=== PATIENT | female | born 1930 | race Caucasian/White ===

== ENCOUNTER 2016-11-12 07:48 | Inpatient (IN) | payer OTHER ==
[~2016-11-12] VITALS: Ht 162.6 cm; Wt 59.9 kg
[~2016-11-12 07:48] MED LIST: ALVIMOPAN 12 MG CAPSULE PO ONE; cefOXitin SODIUM 2 GM in D5W 100 ML IV ONE
[2016-11-12] MEDS ORDERED: ALVIMOPAN 12 MG CAPSULE PO ONE (08:18)
[2016-11-12] MEDS ORDERED: MEPERIDINE HCL/PF 25 MG/ML DISP.SYRIN IVP PRN (11:30)
[2016-11-12] MEDS ORDERED: HYDROmorphone 2 MG/ML VIAL IVP PRN ×2 (11:30)
[2016-11-12] MEDS ORDERED: HYDROmorphone 1 MG INJ. 1 MG/ML AMPUL IVP PRN ×2 (11:30→12:45)
[2016-11-12] MEDS ORDERED: LR 1,000 ML IV SCH (11:30)
[2016-11-12] MEDS ORDERED: ONDANSETRON HCL 4 MG/2 ML VIAL IVP PRN (12:45)
[2016-11-12] MEDS ORDERED: ACETAMINOPHEN 325 MG TABLET PO PRN (12:45)
[2016-11-12] MEDS ORDERED: HYDROcodone/ACETAMIN 5-325 MG TAB (NORCO/ VICODIN) PO PRN ×2 (12:45)
[2016-11-12 13:24] LABS: HEMOGLOBIN 12.4 g/dL (12.0-16.0)
[2016-11-12 13:31] LABS: ANION GAP 7 (5-15); CALCIUM 8.3 mg/dL (8.4-11.0); CHLORIDE 108 mmol/L (98-107); CREATININE 1.05 mg/dL (0.55-1.30); GLUCOSE 151 mg/dL (70-99); POTASSIUM 3.9 mmol/L (3.5-5.1); SODIUM SERUM 140 mmol/L (136-145); UREA NITROGEN, BLOOD 12 mg/dL (8-21)
[2016-11-12 13:35] VITALS: BP 133/65; PULSE 68; RESP 18; TEMP 97.8; O2SAT 92
--- NOTE | 2016-11-12 13:46 | NUR ---
NOTE PT CAME TO FLOOR VIA BED FROM PACU. PT WAS ORIENTED TO ROOM AND NURSING ROUTINES/PROCEDURES. ABDOMINAL INCISION COVERED WITH SURGICAL DRESSING WHICH IS CDI AT THIS TIME. PT DENIES ANY PAIN/DISCOMFORT AT THIS TIME. PT IS ON ROOM AIR AT THIS TIME. PT HAS LOPEZ CATHETER WHICH IS INTACT AND DRAINING WELL AT THIS TIME. CALL LIGHT WITHIN REACH. PT DROWSY AND SLEEPY AT THIS TIME. NO FAMILY AT BEDSIDE AT THIS TIME.
[2016-11-12] MEDS ORDERED: ONDANSETRON HCL 4 MG/2 ML VIAL ONE (14:00)
[2016-11-12] MEDS ORDERED: fentaNYL CITRATE 250 MCG/5 ML AMP ONE (14:00)
[2016-11-12] MEDS ORDERED: MIDAZOLAM HCL 5 MG/5 ML VIAL ONE (14:00)
[2016-11-12] MEDS ORDERED: SEVOFLURANE 15 MIN GAS INH ONE (14:00)
[2016-11-12] MEDS ORDERED: PROPOFOL 200MG/ 20ML VIAL (DIPRIVAN) IV ONE (14:00)
[2016-11-12] MEDS ORDERED: KETOROLAC TROMETHAMINE 30 MG VIAL ONE (14:00)
[2016-11-12] MEDS ORDERED: DEXAMETHASONE SOD PHOSPHATE 4 MG/ML VIAL ONE (14:00)
[2016-11-12] MEDS ORDERED: ROCURONIUM BROMIDE 10 MG/ML (ZEMURON) ONE (14:00)
[2016-11-12] MEDS ORDERED: fentaNYL CITRATE/PF 100 MCG/2 ML AMP ONE (14:00)
[2016-11-12 14:32] VITALS: BP 133/65; PULSE 68
[2016-11-12] MEDS: D5/0.45 NS 1,000 ML IV SCH (14:59)
[2016-11-12] MEDS ORDERED: BUPIVACAINE LIPOSOME/PF 266 MG/20 ML VIAL INFIL ONE (15:00)
--- NOTE | 2016-11-12 15:18 | NUR ---
NOTE PT STILL SLEEPY AND DROWSY AT THIS TIME. VSS AT THIS TIME. NO NEEDS NOTED AT THIS TIME. IVF'S INFUSING WELL THROUGH LEFT HAND IV AT THIS TIME. CALL LIGHT WITHIN REACH.
--- NOTE | 2016-11-12 18:45 | NUR ---
NOTE PT AAOX4. PT TAKING A FEW ICE CHIPS. NO N/V OR ABDOMINAL PAIN OR SOB/RESP DISTRESS NOTED. IVF'S INFUSING WELL THROUGH LEFT IV SITE AT THIS TIME. SCD'S ON BILATERALLY AND ABDOMINAL DRESSING CDI AT THIS TIME. LOPEZ CATHETER INTACT AND DRAINING WELL. CALL LIGHT WITHIN REACH.
[2016-11-12 20:00] VITALS: BP 104/61; PULSE 68; RESP 16; TEMP 98.7; O2SAT 97
--- NOTE | 2016-11-12 20:00 | NUR ---
opening Note Report received from Leslie day shift RN. Patient is currently resting in bed. Stated that she is unable to rest because of the noise. Patient's curtains were closed to provide privacy. Will try to minimize noise and interruptions as much as possible. Patient verbalized understanding. IV is on the LFA running D51/2NS@100ml/hr. Call light is within reach. Instructed to use it whenever in need of assistance.
[2016-11-12] MEDS: ALVIMOPAN 12 MG CAPSULE PO SCH (20:57)
[2016-11-12] MEDS: FAMOTIDINE PF 20 MG/2 ML VIAL IVP SCH (20:57)
[2016-11-12] MEDS: cefOXitin SODIUM 2 GM in D5W 100 ML IV SCH (20:57)
--- NOTE | 2016-11-12 22:01 | NUR ---
Rounds Patient is currently resting in bed. No signs of distress noted. Call light is within reach.
[2016-11-13 00:18] VITALS: BP 114/65; PULSE 74; RESP 15; TEMP 97.7; O2SAT 94
--- NOTE | 2016-11-13 00:47 | NUR ---
Rounds Patient is resting in bed. Call light is within reach.
--- NOTE | 2016-11-13 02:45 | NUR ---
Rounds Patient is resting in bed. Call light is within reach.
[2016-11-13] MEDS: D5/0.45 NS 1,000 ML IV SCH ×2 (03:02→14:01)
[2016-11-13 04:25] VITALS: BP 119/60; PULSE 69; RESP 15; TEMP 98.9; O2SAT 97
--- NOTE | 2016-11-13 04:32 | NUR ---
Rounds Patient is sleeping in bed. No complaints at the moment.
--- NOTE | 2016-11-13 06:55 | NUR ---
Closing Note Patient is in stable condition. No signs of distress noted. Call light is within reach. IV is on the LFA running D51/2NS@100ml/hr. Will give report to the oncoming nurse.
--- NOTE | 2016-11-13 07:20 | NUR ---
Initial notes: pt on bed awake, alert and oriented. I.V. access patent. Abdominal dressing no active bleeding. Discussed plan of care. call light within reach. Report received at bedside.
[2016-11-13 07:46] LABS: BASOPHILS % (AUTO) 0.3 % (0.0-2.0); EOSINOPHILS % (AUTO) 0.1 % (0.0-4.0); HEMATOCRIT 35.8 % (36-48); LYMPHOCYTES # (AUTO) 3.1 K/uL (1.0-5.5); LYMPHOCYTES % (AUTO) 25.6 % (20.5-51.5); MEAN CORPUSCULAR HEMOGLOBIN 31 pg (27-31); MEAN CORPUSCULAR HGB CONC 34 % (32-36); MEAN CORPUSCULAR VOLUME 94 fL (79.0-98.0); MONOCYTES # (AUTO) 1.1 K/uL (0.0-1.0); NEUTROPHILS # (AUTO) 7.8 K/uL (1.8-7.7); PLATELET COUNT (AUTO) 210 K/uL (130-430); RED BLOOD CELL COUNT(AUTO) 3.82 MIL/uL (4.2-6.2)
[2016-11-13 07:55] LABS: ALANINE AMINOTRANSFERASE 23 U/L (12-78); ALBUMIN 3.1 g/dL (3.4-4.8); ANION GAP 8 (5-15); ASPARTATE AMINOTRANSFERASE 20 U/L (10-37); CHLORIDE 102 mmol/L (98-107); CREATININE 0.86 mg/dL (0.55-1.30); GLUCOSE 123 mg/dL (70-99); POTASSIUM 3.2 mmol/L (3.5-5.1); SODIUM SERUM 135 mmol/L (136-145); TOTAL BILIRUBIN 0.5 mg/dL (0.0-1.0); TOTAL PROTEIN, SERUM 6.5 g/dL (6.4-8.3); UREA NITROGEN, BLOOD 7 mg/dL (8-21)
[2016-11-13 08:00] VITALS: BP 132/62; PULSE 62; RESP 16; TEMP 98
--- NOTE | 2016-11-13 08:56 | NUR ---
Nutrition Update Marcos Scale 16 noted. Pt admitted for rectal prolapse. Diet: NPO BMI: 22.7 kg/m2 RD to follow per nutrition care standards.
[2016-11-13] MEDS: cefOXitin SODIUM 2 GM in D5W 100 ML IV SCH (09:28)
[2016-11-13] MEDS: ALVIMOPAN 12 MG CAPSULE PO SCH ×2 (09:28→20:52)
[2016-11-13] MEDS: ENOXAPARIN SODIUM 30 MG/0.3 ML SYRINGE SUBCUT SCH (09:29)
[2016-11-13] MEDS: FAMOTIDINE PF 20 MG/2 ML VIAL IVP SCH ×2 (09:29→20:52)
--- NOTE | 2016-11-13 10:00 | NUR ---
rounds: pt on bed resting. no distress noted.
[2016-11-13 12:41] VITALS: BP 136/73; PULSE 65; RESP 16; TEMP 97.4; O2SAT 97
[2016-11-13] MEDS ORDERED: POTASSIUM CHLORIDE 40 MEQ in NS 250 ML IV ONE (13:00)
--- NOTE | 2016-11-13 13:00 | NUR ---
P.T.: Seen by Lilian. Able to walk a few steps.
[2016-11-13 15:33] VITALS: BP 140/75; PULSE 76; RESP 18; TEMP 98.6; O2SAT 96
--- NOTE | 2016-11-13 16:00 | NUR ---
rounds: pt on bed. no distress noted.
--- NOTE | 2016-11-13 17:27 | NUR ---
P.T. NOTES P.T. EVAL DONE, D/C FROM P.T. AFTER TX TODAY; NURSING TO [facility] PATIENT AD MELIDA.
[2016-11-13] MEDS: METOCLOPRAMIDE HCL 10 MG/2 ML VIAL IVP SCH ×2 (19:00→23:48)
--- NOTE | 2016-11-13 19:20 | NUR ---
closing notes: pt on bed resting. stable. needs attended. call light within reach. report given at bedside.
[2016-11-13 19:30] VITALS: BP 143/87; PULSE 77; RESP 20; TEMP 97.8; O2SAT 97
--- NOTE | 2016-11-13 19:30 | NUR ---
INITIAL NOTES; -Pt is a/ox4, resting in bed. Pt denies any pain,sob,or any acute distress. Vitals signs 97.8, 20, 77,143/87, t6bld=77% r/a. IVF D5 1/2NS @ 100ml/hr. Iv site of left hand patent, no s/s any infiltration noted. Surgical site of abdominal area-drsg cdi. Keep HOB greater than 30 degree entire time. Lung sounds clear throughout all lobes. Abdomen soft & nondistended, bs present. Bill pedis pulses present, no edema noted.Turned and repositioned and q 2 hrs prn. SCD in place nancy lower extremities. Encouraged pt to use incentive spirometry 10x/hr while awake, pt shows good teaching back and verbalized understanding. All safety measures in place. Cuevas cath in place w/ gravity drains yellow urine output. Call light w/in reach. Continue to monitor pt.
--- NOTE | 2016-11-13 20:52 | NUR ---
NOTES; -Pt is resting in bed. Gave scheduled po medication, pt tolerated well. Pt denies any pain,sob,or any acute distress. IVF D5 1/2NS @ 100ml/hr. Iv site of left hand patent, no s/s any infiltration noted. SCD in place nancy lower extremities. All safety measures in place. Cuevas cath in place w/ gravity drains yellow urine output. Call light w/in reach. Continue to monitor pt.
--- NOTE | 2016-11-13 22:10 | NUR ---
NOTES; -Pt is resting in bed. No s/s any pain,sob,or any acute distress noted. IVF D5 1/2NS @ 100ml/hr. Iv site of left hand patent, no s/s any infiltration noted. All safety measures in place. Cuevas cath in place w/ gravity drains yellow urine output. Call light w/in reach. Continue to monitor pt.
--- NOTE | 2016-11-13 23:48 | NUR ---
NOTES; -Pt is resting in bed. Pt denies any pain,sob,or any acute distress. IVF D5 1/2NS @ 100ml/hr. Iv site of left hand patent, no s/s any infiltration noted. All safety measures in place. Cuevas cath in place w/ gravity drains yellow urine output. Call light w/in reach. Continue to monitor pt.
[2016-11-14 00:49] VITALS: BP 124/68; PULSE 83; RESP 17; TEMP 97.6; O2SAT 96
[2016-11-14] MEDS: D5/0.45 NS 1,000 ML IV SCH ×2 (05:26→12:20)
[2016-11-14] MEDS: METOCLOPRAMIDE HCL 10 MG/2 ML VIAL IVP SCH ×2 (05:26→12:19)
[2016-11-14 05:48] VITALS: BP 117/59; PULSE 84; RESP 18; TEMP 97.6; O2SAT 97
--- NOTE | 2016-11-14 06:40 | NUR ---
CLOSING NOTES; D/C Cuevas cath -Pt is resting in bed. Pt denies any pain,sob,or any acute distress. IVF D5 1/2NS @ 100ml/hr. Iv site of left hand patent, no s/s any infiltration noted. All safety measures in place. Discontinued Cuevas cath, pt is due to void anytime, instructed pt to inform nurse when 1st voids and not voids w/in 6 hrs, pt verbalized understanding. Call light w/in reach. Will endorse to oncoming nurse to continue care.
--- NOTE | 2016-11-14 07:20 | NUR ---
initial notes: pt on bed awake, alert and oriented. stable. i.v. access patent. Discussed plan of care. call light within reach. report received at bedside.
[2016-11-14 08:00] VITALS: BP 138/76; PULSE 68; RESP 16; TEMP 97; O2SAT 95
[2016-11-14] MEDS: ALVIMOPAN 12 MG CAPSULE PO SCH (08:53)
[2016-11-14] MEDS: ENOXAPARIN SODIUM 30 MG/0.3 ML SYRINGE SUBCUT SCH (08:54)
[2016-11-14] MEDS: FAMOTIDINE PF 20 MG/2 ML VIAL IVP SCH (08:54)
--- NOTE | 2016-11-14 10:00 | NUR ---
rounds: pt on bed resting. no distress noted.
[2016-11-14 12:00] VITALS: BP 134/78; PULSE 82; RESP 20; TEMP 97.1; O2SAT 96
--- NOTE | 2016-11-14 12:30 | NUR ---
Sravanthi rounds: seen by Dr. Caldwell with new order.
--- NOTE | 2016-11-14 14:00 | NUR ---
rounds: pt on bed. no distress noted.
[2016-11-14 15:33] VITALS: BP 130/74; PULSE 76; RESP 21; TEMP 98; O2SAT 95
[2016-11-14 16:00] VITALS: BP 130/74; PULSE 76; RESP 21; TEMP 98; O2SAT 95
--- NOTE | 2016-11-14 16:15 | NUR ---
D/C Patient Patient given medication reconciliation form and D/C instructions. Exit Care provided. Patient verbalized understanding. MD discussed with patient the results and treatment provided. Ambulatory with steady gait for discharge to home. Patient in stable condition, ID band removed. IV catheter removed, intact and dressing applied, no active bleeding. Rx of Hydrocodone given. Patient educated on pain management. All belongings sent with patient.
--- NOTE | 2016-11-16 12:43 | NUR ---
Discharge Follow Up Phone Call [employer] phoned patient and left a voicemail message on 11/15/16. Patient's daughter, Olivia, returned the call. Olivia stated that patient was doing well. They filled her prescription and have made her follow up appointments. They have no questions or concerns. She requests no further follow up calls.
== END 2016-11-14 16:15 | disposition home or self-care (01) | DRG 331 ==
LOC: SDS 07:48 → SMU 07:49 → SDS 12:34 → SMU 12:35
PROVIDERS: ADMIT Internal Medicine; ATTEND Internal Medicine
PROC: 0DQP4ZZ Repair Rectum, Percutaneous Endoscopic Approach (ICD-10-PCS; 2016-11-12)
PROC: 0DTP4ZZ Resection of Rectum, Percutaneous Endoscopic Approach (ICD-10-PCS; principal; 2016-11-12 10:05)
DX: K62.3 Rectal prolapse (principal)
CPT/HCPCS: 36415; 80048; 80053; 82948; 85018-TC; 85025; 87081; 88307; 94010; 97110-GP; C1727; C9290; J0694; J1100; J1650; J1885; J2250; J2405; J2704; J2765; J3010; J3480; J3490; J7042; J7050; J7060; J7120

== ENCOUNTER 2019-03-09 11:38 | Emergency (ER) | payer OTHER ==
[~2019-03-09] VITALS: Ht 160 cm; Wt 59.0 kg
[2019-03-09 11:38] VITALS: BP_SYST 135
--- NOTE | 2019-03-09 11:38 | NUR ---
BROUGHT BACK TO BED #6 AND TRIAGED. REPORT GIVEN TO MELISSA
--- NOTE | 2019-03-09 11:40 | NUR ---
Pt bib family for gen.weakness h/o rectal prolapse.
--- NOTE | 2019-03-09 11:55 | NUR ---
Rectal exam performed by Dr Xiong with myself at bedside during procedure. Patient tolerated well.
--- NOTE | 2019-03-09 12:00 | NUR ---
ER at bedside examining patient.
[2019-03-09 12:49] LABS: BASOPHILS # (AUTO) 0.1 K/uL (0.0-0.2); BASOPHILS % (AUTO) 2.2 % (0.0-2.0); EOSINOPHILS # (AUTO) 0.2 K/uL (0.0-0.4); EOSINOPHILS % (AUTO) 2.6 % (0.0-4.0); HEMATOCRIT 41.6 % (36-48); HEMOGLOBIN 13.9 g/dL (12.0-16.0); LYMPHOCYTES % (AUTO) 44.7 % (20.5-51.5); MEAN CORPUSCULAR HEMOGLOBIN 32 pg (27-31); MEAN CORPUSCULAR HGB CONC 34 % (32-36); MEAN CORPUSCULAR VOLUME 95 fL (79.0-98.0); MONOCYTES # (AUTO) 0.6 K/uL (0.0-1.0); MONOCYTES % (AUTO) 8.6 % (1.7-9.3); NEUTROPHILS # (AUTO) 2.8 K/uL (1.8-7.7); NEUTROPHILS % (AUTO) 41.9 % (40.0-70.0); PLATELET COUNT (AUTO) 263 K/uL (130-430); RED CELL DISTRIBUTION WIDTH 13.9 % (9.0-15.0); WHITE BLOOD COUNT (AUTO) 6.8 K/uL (4.8-10.8)
[2019-03-09 12:57] LABS: ANION GAP 5 (5-15); CALCIUM 9.6 mg/dL (8.4-11.0); CHLORIDE 107 mmol/L (98-107); CREATININE 0.82 mg/dL (0.55-1.30); GLUCOSE 97 mg/dL (70-99); POTASSIUM 4.2 mmol/L (3.5-5.1); SODIUM SERUM 139 mmol/L (136-145); UREA NITROGEN, BLOOD 18 mg/dL (8-21)
[2019-03-09 13:02] LABS: ALANINE AMINOTRANSFERASE 26 U/L (12-78); ALBUMIN 3.8 g/dL (3.4-4.8); ASPARTATE AMINOTRANSFERASE 17 U/L (10-37); LIPASE 238 U/L (73-393); TOTAL BILIRUBIN 0.4 mg/dL (0.0-1.0)
[2019-03-09 13:43] LABS: BILIRUBIN,URINE NEGATIVE (NEGATIVE); BLOOD, URINE NEGATIVE (NEGATIVE); CLARITY/URINE CLEAR (CLEAR); COLOR,URINE YELLOW (YELLOW); GLUCOSE,URINE NEGATIVE (NEGATIVE); KETONES,URINE NEGATIVE (NEGATIVE); LEUKOCYTE ESTERASE ,URINE NEGATIVE (NEGATIVE); NITRITE, URINE NEGATIVE (NEGATIVE); PROTEIN URINE NEGATIVE (NEGATIVE); UROBILINOGEN,URINE 0.2 (0.2-1.0)
[2019-03-09 14:10] VITALS: BP_SYST 135
--- NOTE | 2019-03-09 14:10 | NUR ---
Patient given written and verbal discharge instructions and verbalizes understanding. ER MD discussed with patient the results and treatment provided. Patient in stable condition. ID arm band No Rx given. Patient educated on pain management and to follow up with PMD. Pain Scale 0 Opportunity for questions provided and answered. Medication side effect fact sheet provided.
== END 2019-03-09 14:10 | disposition home or self-care (01) ==
LOC: SED 11:38
DX: R53.1 Weakness (principal); R03.0 Elevated blood-pressure reading, without diagnosis of hypertension
CPT/HCPCS: 36415; 80053; 81003; 83690-TC; 85025; 85610-TC; 99283